=== PATIENT | female | born 1950 | race Caucasian/White ===

== ENCOUNTER 2017-04-24 07:40 | Day surgery (SDC) | payer OTHER ==
[2017-04-24] MEDS ORDERED: NS 500 ML IV 500 ML IV ONE ×2 (08:41→10:43)
[2017-04-24] MEDS ORDERED: TETRACAINE 0.5% OPHTH 1 DOSE AFFEYE ONE ×7 (08:45→11:19)
[2017-04-24] MEDS ORDERED: VIGAMOX 0.5% OPHTH 1 DOSE AFFEYE ONE ×6 (08:46→11:30)
[2017-04-24] MEDS ORDERED: PROLENSA OPHTH 1 DOSE AFFEYE ONE (08:58)
[2017-04-24] MEDS ORDERED: ALPHAGAN-P OPHTH 1 DOSE AFFEYE ONE (08:59)
[2017-04-24] MEDS ORDERED: MYDRIACIL OPHTH 1 DOSE AFFEYE ONE ×4 (09:00→09:03)
[2017-04-24] MEDS ORDERED: AK-DILATE 2.5% OPHTH 1 DOSE OP ONE ×4 (09:00→09:03)
[2017-04-24] MEDS ORDERED: CYCLOGYL 1% OPHTH 1 DOSE OP ONE ×4 (09:00→09:03)
[2017-04-24] MEDS: VERSED ONE ×2 (10:25→10:42)
[2017-04-24] MEDS ORDERED: AK-DILATE 10% OPHTH 1 DOSE AFFEYE ONE (10:46)
[2017-04-24] MEDS ORDERED: BETADINE OPHTH SOLN 5% EACHEYE ONE (11:06)
[2017-04-24] MEDS ORDERED: VISCOAT 0.5 ML IO ONE ×2 (11:07→11:19)
[2017-04-24] MEDS ORDERED: XYLOCAINE-MPF 1% IJ ONE ×2 (11:07→11:19)
[2017-04-24] MEDS ORDERED: ADRENALINE CHL INJ IJ ONE ×2 (11:07→11:19)
[2017-04-24] MEDS ORDERED: DUOVISC IO ONE ×2 (11:07→11:19)
[2017-04-24] MEDS ORDERED: BSS OPHTH (PLAIN) 500 ML with VANCOMYCIN HCL 500 MG VIAL 25 MG, ADRENALINE CHL INJ 1 MG IR ONE ×6 (11:08)
[2017-04-24 11:49] VITALS: BP 153/78
[2017-04-24] MEDS ORDERED: DIPRIVAN VIAL ONE (15:57)
== END 2017-04-24 11:55 | disposition home or self-care (01) ==
LOC: SURG1 07:40
PROVIDERS: ATTEND Ophthalmology
PROC: 08DJ3ZZ Extraction of Right Lens, Percutaneous Approach (ICD-10-PCS; principal; 2017-04-24 11:00)
PROC: 08RJ3JZ Replacement of Right Lens with Synthetic Substitute, Percutaneous Approach (ICD-10-PCS; principal; 2017-04-24 11:00)
DX: H25.11 Age-related nuclear cataract, right eye (principal); H25.011 Cortical age-related cataract, right eye; H52.221 Regular astigmatism, right eye
CPT/HCPCS: A4217; J0170; J2250; J3370; J3490

== ENCOUNTER 2017-08-28 08:41 | Day surgery (SDC) | payer OTHER ==
[~2017-08-28 08:41] MED LIST: FENTANYL INJ 100 mcg ONE; VERSED ONE
[2017-08-28] MEDS ORDERED: TETRACAINE 0.5% OPHTH 1 DOSE AFFEYE ONE ×7 (09:00→12:13)
[2017-08-28] MEDS ORDERED: NS 500 ML IV 500 ML IV ONE (09:02)
[2017-08-28] MEDS ORDERED: VIGAMOX 0.5% OPHTH 1 DOSE AFFEYE ONE ×5 (09:05→12:25)
[2017-08-28] MEDS ORDERED: PROLENSA OPHTH 1 DOSE AFFEYE ONE (09:16)
[2017-08-28] MEDS ORDERED: ALPHAGAN-P OPHTH 1 DOSE AFFEYE ONE (09:17)
[2017-08-28] MEDS ORDERED: MYDRIACIL OPHTH 1 DOSE AFFEYE ONE ×3 (09:18→09:20)
[2017-08-28] MEDS ORDERED: AK-DILATE 2.5% OPHTH 1 DOSE OP ONE ×3 (09:18→09:20)
[2017-08-28] MEDS ORDERED: CYCLOGYL 1% OPHTH 1 DOSE OP ONE ×3 (09:18→09:20)
[2017-08-28] MEDS ORDERED: VERSED IVP ONE (11:47)
[2017-08-28] MEDS ORDERED: BETADINE OPHTH SOLN 5% EACHEYE ONE (11:57)
[2017-08-28] MEDS ORDERED: BSS OPHTH (PLAIN) 500 ML with VANCOMYCIN HCL 500 MG VIAL 25 MG, ADRENALINE CHL INJ 1 MG IR ONE ×6 (12:10)
[2017-08-28] MEDS ORDERED: ADRENALINE CHL INJ IJ ONE ×2 (12:10→12:13)
[2017-08-28] MEDS ORDERED: DUOVISC IO ONE ×2 (12:10→12:13)
[2017-08-28] MEDS ORDERED: XYLOCAINE-MPF 1% IJ ONE ×2 (12:10→12:13)
[2017-08-28 16:28] VITALS: BP 140/74
== END 2017-08-28 12:48 | disposition home or self-care (01) ==
LOC: SURG1 08:41
PROVIDERS: ATTEND Ophthalmology
PROC: 08RK3JZ Replacement of Left Lens with Synthetic Substitute, Percutaneous Approach (ICD-10-PCS; principal; 2017-08-28 12:00)
PROC: 08DK3ZZ Extraction of Left Lens, Percutaneous Approach (ICD-10-PCS; principal; 2017-08-28 12:00)
DX: H25.12 Age-related nuclear cataract, left eye (principal); H25.012 Cortical age-related cataract, left eye; H52.222 Regular astigmatism, left eye
CPT/HCPCS: A9270; A4217; J0170; J2250; J3010; J3370